=== PATIENT | female | born 1985 | race Caucasian/White ===

== ENCOUNTER 2017-08-25 19:53 | Emergency (ER) | payer MEDICAID ==
[~2017-08-25] VITALS: Ht 157.5 cm; Wt 73.6 kg
[2017-08-25 23:35] VITALS: BP 133/83
== END 2017-08-26 00:33 | disposition home or self-care (01) ==
LOC: ER 23:07
DX: H61.21 Impacted cerumen, right ear (principal); Z88.0 Allergy status to penicillin
CPT/HCPCS: 99283; X7700; Z7610